=== PATIENT | female | born 1960 | race Caucasian/White ===

== ENCOUNTER → 2017-10-25 | Outpatient (REF) ==
[~2017-10-25] MED LIST: AMLOPIDINE; ATIVAN0.5 MG PO; AVANDIA; HCTZ 25MG25 MG PO; K-DUR 2020 MEQ PO; MICARDIS40 MG PO; PRILOSEC 20MG20 MG PO; VICTOZA6 MG/ML SC; ZOFRAN4 M1 PO
[2017-10-25 18:05] LABS: IRON,SERUM 112 ug/dL (35-150)
[2017-10-25 18:14] LABS: TOTAL IRON BINDING CAPACITY 442 ug/dL (265-497)
[2017-10-25 18:40] LABS: FERRITIN 31 ng/mL (11-264)
== END ==
LOC: ZLAB.WCH 17:46
PROVIDERS: Internal Medicine
DX: Z01.89 Encounter for other specified special examinations (principal)

== ENCOUNTER 2019-07-13 10:15 | Outpatient (RCR) | payer BC | END 2019-09-30 | disposition home or self-care (01) | LOC: WSC | DX: R53.1 Weakness (principal) ==

== ENCOUNTER 2022-03-08 15:55 | Emergency (ER) | payer BC ==
[~2022-03-08] VITALS: Ht 160 cm; Wt 136.4 kg
[2022-03-08 16:10] VITALS: TEMP 97.6
[2022-03-08 18:52] LABS: BASO # 0.1 K/mm3 (0.0-0.2); EOS # 0.2 K/mm3 (0.0-0.7); EOS % 3.3 % (0.0-4.0); GRAN # 4.4 K/mm3 (1.4-6.5); HEMATOCRIT 47.9 % (37.0-47.0); HEMOGLOBIN 16.3 g/dl (12.5-16.0); LYMPH # 1.7 K/mm3 (1.2-3.4); LYMPH % 24.3 % (20.0-51.0); MEAN CELL VOLUME 92 fl (80.0-100.0); MEAN CORPUSCULAR HEMOGLOBIN 31 pg (27-31); MEAN CORPUSCULAR HGB CONC 34 g/dl (33.0-37.0); MEAN PLATELET VOLUME 9.8 fl (7.4-10.4); MONO # 0.7 K/mm3 (0.1-0.6); MONO % 9.3 % (1.7-9.3); PLATELET COUNT 266 K/mm3 (130-400); RED BLOOD COUNT 5.23 M/mm3 (4.10-5.30); REDCELL DISTRIBUTION WIDTH-CV 15.9 % (11.5-14.5)
[2022-03-08 18:59] LABS: ALBUMIN 3.9 gm/dL (3.4-4.8); ANION GAP 15 mmol/L (7-16); BLOOD UREA NITROGEN 20 mg/dL (10-20); CALCIUM 9.9 mg/dL (8.4-10.2); CARBON DIOXIDE 22 mmol/L (23-31); CHLORIDE 100 mmol/L (98-107); GLUCOSE 165 mg/dL (70-99); PHOSPHOROUS 3.5 mg/dL (2.3-4.7); POTASSIUM 3.8 mmol/L (3.5-4.5); SODIUM 137 mmol/L (136-145)
[2022-03-08 19:07] LABS: TROPONIN-I < 0.010 ng/mL (0.00-0.033)
[2022-03-08 19:12] LABS: CREATININE, serum 0.98 mg/dL (0.57-1.11)
[2022-03-08 20:02] VITALS: BP 1168/73; PULSE 77
== END 2022-03-08 19:59 | disposition home or self-care (01) ==
LOC: COL.ER 15:55
PROVIDERS: Emergency Medicine
DX: R00.2 Palpitations (principal); R00.1 Bradycardia, unspecified; Z86.16 Personal history of COVID-19

== ENCOUNTER 2022-03-10 00:54 | Emergency (ER) | payer BC ==
[~2022-03-10] VITALS: Ht 160 cm; Wt 136.4 kg
[2022-03-10 01:34] VITALS: BP 150/72; PULSE 83; TEMP 98.7
== END 2022-03-10 01:34 | disposition home or self-care (01) ==
LOC: COL.ER 00:54
DX: I49.3 Ventricular premature depolarization (principal); F17.210 Nicotine dependence, cigarettes, uncomplicated

== ENCOUNTER 2023-02-10 15:54 | Emergency (ER) | payer BC ==
[~2023-02-10] VITALS: Ht 162.6 cm; Wt 118.2 kg
[~2023-02-10 15:54] MED LIST changes: -AMLOPIDINE; +NORVASC 10MG10 MG PO
[2023-02-10 15:57] VITALS: TEMP 98
[2023-02-10 16:30] LABS: BASO % 0.5 % (0.0-2.0); EOS % 0.4 % (0.0-4.0); GRAN # 6.3 K/mm3 (1.4-6.5); GRAN % 77.3 % (42.2-75.2); HEMOGLOBIN 12.8 g/dl (12.5-16.0); LYMPH # 0.9 K/mm3 (1.2-3.4); LYMPH % 11.1 % (20.0-51.0); MEAN CELL VOLUME 86 fl (80.0-100.0); MEAN CORPUSCULAR HEMOGLOBIN 31 pg (27-31); MEAN CORPUSCULAR HGB CONC 36 g/dl (33.0-37.0); MEAN PLATELET VOLUME 9.2 fl (7.4-10.4); MONO # 0.8 K/mm3 (0.1-0.6); MONO % 9.6 % (1.7-9.3); PLATELET COUNT 221 K/mm3 (130-400); RED BLOOD COUNT 4.14 M/mm3 (4.10-5.30); REDCELL DISTRIBUTION WIDTH-CV 13.3 % (11.5-14.5)
[2023-02-10 16:31] LABS: INR 1.1 (0.8-3.0); PROTHROMBIN TIME 11.8 SECONDS (9.7-12.8)
[2023-02-10 16:35] LABS: HEMATOCRIT 35.4 % (37.0-47.0)
[2023-02-10] MEDS ORDERED: TOPROL XL 50MG50 MG PO (17:08)
[2023-02-10] MEDS ORDERED: RT ADVAIR 228 DISKUS IH (17:09)
[2023-02-10] MEDS ORDERED: HCTZ 25MG TAB25 MG PO (17:09)
[2023-02-10] MEDS ORDERED: COZAAR100 MG PO (17:09)
[2023-02-10] MEDS ORDERED: ACTOS 45MG45 MG/TAB PO (17:10)
[2023-02-10] MEDS ORDERED: VITAMIND3 5000 PO (17:12)
[2023-02-10 17:38] LABS: ALANINE AMINOTRANSFERASE 14 U/L (0-55); ALBUMIN 3.3 gm/dL (3.4-4.8); ALKALINE PHOSPHATASE 282 U/L (40-150); ANION GAP 17 mmol/L (7-16); AST,SGOT 40 U/L (5-34); BLOOD UREA NITROGEN 11 mg/dL (10-20); CALCIUM 9.9 mg/dL (8.4-10.2); CARBON DIOXIDE 17 mmol/L (23-31); CREATININE, serum 0.73 mg/dL (0.57-1.11); GLUCOSE 165 mg/dL (70-99); POTASSIUM 4.6 mmol/L (3.5-4.5); TOTAL PROTEIN 6.9 gm/dL (6.2-8.1)
[2023-02-10 17:40] LABS: CHLORIDE 80 mmol/L (98-107); SODIUM 114 mmol/L (136-145)
[2023-02-10 17:45] LABS: TROPONIN-I < 0.010 ng/mL (0.00-0.033)
[2023-02-10 18:23] LABS: COLLECTION METHOD CLEAN CATCH
[2023-02-10 18:38] LABS: URINE APPEARANCE Hazy (CLEAR/HAZY); URINE COLOR Yellow (YELLOW); URINE GLUCOSE Negative (NEGATIVE); URINE KETONE 1+ (NEGATIVE); URINE PROTEIN(semi-quant) 2+ (NEGATIVE)
[2023-02-10 18:39] LABS: URINE BLOOD TRACE-INTACT (NEGATIVE); URINE NITRATE Negative (NEGATIVE)
[2023-02-11] VITALS: BP 161/68; PULSE 88
== END 2023-02-11 | disposition short-term general hospital (02) ==
LOC: COL.ER 15:54
PROVIDERS: Emergency Medicine
DX: C79.51 Secondary malignant neoplasm of bone (principal); E87.1 Hypo-osmolality and hyponatremia
CPT/HCPCS: J2405; Q9967